=== PATIENT | female | born 1975 | race Caucasian/White ===

== ENCOUNTER 2016-11-17 10:39 | Emergency (ER) | payer OTHER ==
--- NOTE | 2016-11-17 13:30 | EDPHY ---
HPI/HX/ROS/PE/MDM Narrative: CHIEF COMPLAINT: Right calf pain HPI: The patient is a 41-year-old female who complains of right calf pain that has been ongoing for several weeks. She states the pain feels like a bruise. The pain is moderate in severity and remains constant. She recently developed shortness of breath that is worse with exertion. She denies chest pain or palpitations. She has no history of PE or DVT. The patient additionally notes that she is pre-diabetic and is concerned she is having blood sugar issues. She states she feels extremely anxious when she doesn 't eat. She develops tachycardia and a dry mouth. These symptoms resolve 1 hour after eating. She states she has been in the ED at least three times in the last few months for this issue. Her last A1C was 4.9. REVIEW OF SYSTEMS: Aside from elements discussed in the HPI, a comprehensive 10-point review of systems was reviewed and is negative. PMH: Possibly Pre-diabetes SOCIAL HISTORY: Moved here from [place]. Denies drug abuse. PHYSICAL EXAM: General: Patient is alert, in no acute distress. ENT: Eyes are normal to inspection. ENT inspection normal. Neck: Normal inspection. Full range of motion. Respiratory: No respiratory distress. Breath sounds normal bilaterally. Cardiovascular: Regular rate and rhythm. Strong peripheral pulses. Abdomen: The abdomen is nontender to palpation. There are no peritoneal signs. There are normal bowel sounds. Back: Normal to inspection. No tenderness to palpation. Skin: Normal color. No rash. Warm and dry. Extremities: Normal appearance. Full range of motion. Neuro: Oriented x3. Normal motor function. Normal sensory function. ED Course: Patient presents with right calf pain and shortness of breath. Plan to check d- dimer, troponin, and basic lab work. Lab work is normal. D-dimer is normal. Preg test is negative. Plan to discharge patient home with PCP referral. MDM: This patient presents with months of what she describes as hypoglycemia, which is weakness when she does not have anything to eat. She also describes months of intermittent SOB which has been evaluated numerous times by other EDs. She complains of mild calf pain, but thankfully d-dimer is negative. Her exam is actually totally normal, so I think she is low risk for DVT based on exam, and with a negative d-dimer I do not think further imaging is indicated. There is no evidence of anemia, renal failure, PE, or electrolyte abnormality. - Data Points Laboratory Results: Laboratory Results 11/17/16 13:35 11/17/16 13:35 11/17/16 11/17/16 11/17/16 13:35 13:35 13:35 WBC RBC Hgb Hct MCV MCH MCHC RDW Plt Count MPV Neut % (Auto) Lymph % (Auto) [place] % (Auto) Eos % (Auto) Baso % (Auto) Nucleat RBC Rel Count Absolute Neuts (auto) Absolute Lymphs (auto) Absolute Monos (auto) Absolute Eos (auto) Absolute Basos (auto) Absolute Nucleated RBC Immature Gran % Immature Gran # D-Dimer 0.44 ug/mLFEU ug/mLFEU (0.00-0.50) Sodium 143 mEq/L mEq/L (134-144) Potassium 4.4 mEq/L mEq/L (3.5-5.2) Chloride 109 mEq/L mEq/L (97-110) Carbon Dioxide 21 mEq/l L mEq/l (22-31) Anion Gap 13 mEq/L mEq/L (8-16) BUN 12 mg/dL mg/dL (7-23) Creatinine 0.8 mg/dL mg/dL (0.6-1.0) Estimated GFR > 60 Glucose 93 mg/dL mg/dL (70-100) Calcium 9.4 mg/dL mg/dL (8.5-10.4) Troponin I < 0.012 ng/mL ng/mL (0-0.034) Beta HCG, Qual NEGATIVE 11/17/16 13:35 WBC 9.16 10^3/uL 10^3/uL (3.80-9.50) RBC 4.71 10^6/uL 10^6/uL (4.18-5.33) Hgb 14.4 g/dL g/dL (12.6-16.3) Hct 43.0 % % (38.0-47.0) MCV 91.3 fL fL (81.5-99.8) MCH 30.6 pg pg (27.9-34.1) MCHC 33.5 g/dL g/dL (32.4-36.7) RDW 12.1 % % (11.5-15.2) Plt Count 370 10^3/uL 10^3/uL (150-400) MPV 10.3 fL fL (8.7-11.7) Neut % (Auto) 59.5 % % (39.3-74.2) Lymph % (Auto) 32.1 % % (15.0-45.0) [place] % (Auto) 6.8 % % (4.5-13.0) Eos % (Auto) 1.0 % % (0.6-7.6) Baso % (Auto) 0.3 % % (0.3-1.7) Nucleat RBC Rel Count 0.0 % % (0.0-0.2) Absolute Neuts (auto) 5.45 10^3/uL 10^3/uL (1.70-6.50) Absolute Lymphs (auto) 2.94 10^3/uL 10^3/uL (1.00-3.00) Absolute Monos (auto) 0.62 10^3/uL 10^3/uL (0.30-0.80) Absolute Eos (auto) 0.09 10^3/uL 10^3/uL (0.03-0.40) Absolute Basos (auto) 0.03 10^3/uL 10^3/uL (0.02-0.10) Absolute Nucleated RBC 0.00 10^3/uL 10^3/uL (0-0.01) Immature Gran % 0.3 % % (0.0-1.1) Immature Gran # 0.03 10^3/uL 10^3/uL (0.00-0.10) D-Dimer Sodium Potassium Chloride Carbon Dioxide Anion Gap BUN Creatinine Estimated GFR Glucose Calcium Troponin I Beta HCG, Qual General Time Seen by Provider: 11/17/16 13:20 Initial Vital Signs: Initial Vital Signs Temperature (C) 36.3 C 11/17/16 11:00 Heart Rate 82 11/17/16 11:00 Respiratory Rate 18 11/17/16 11:00 Blood Pressure 130/89 H 11/17/16 11:00 O2 Sat (%) 97 11/17/16 11:00 O2 Delivery Mode Room Air Allergies/Adverse Reactions: No Known Allergies Allergy (Verified 11/17/16 11:18) Home Medications: Medication Instructions Recorded "Lots Of Vitamins" 05/03/12 Departure - Departure Disposition: Home, Routine, Self-Care Clinical Impression: Shortness of breath, Right calf pain Condition: Good Instructions: Dyspnea (ED), Leg Pain (ED) Additional Instructions: Please followup with a primary care physician this week in regards to your symptoms. You have been referred to one of our primary care physicians below. Return to the emergency department with new or worsening symptoms. Referrals: Pia Cortes MD [[facility] [place] Provider] - As per Instructions (Primary Care Physician) Report Scribed for: Liban Faye Report Scribed by: Reina Murillo Date of Report: 11/17/16 Time of Report: 13:30 Physician Review and Approval Statement: Portions of this note were transcribed by a medical billing manager. I personally performed the history, physical exam, and medical decision-making; and confirmed the accuracy of the information in the transcribed note.
--- NOTE | 2016-11-17 13:40 | CPEKG ---
Heart Rate: 74 RR Interval: 811 P-R Interval: 156 QRSD Interval: 76 QT Interval: 400 QTC Interval: 444 P [place]: 51 QRS [place]: 40 T Wave [place]: 25 EKG Severity - NORMAL ECG - EKG Impression: SINUS RHYTHM Electronically Signed By: Len Rodriguez 17-Nov-2016 14:57:55
[2016-11-17 13:42] LABS: % IMMATURE GRANULYOCYTES 0.3 % (0.0-1.1); ABSOLUTE IMMATURE GRANULOCYTES 0.03 10^3/uL (0.00-0.10); ADD DIFF? NO; ADD MORPH? NO; ADD SCAN? NO; ATYPICAL LYMPHOCYTE FLAG 0 (0-99); FRAGMENT RBC FLAG 0 (0-99); HEMOGLOBIN 14.4 g/dL (12.6-16.3); LEFT SHIFT FLG 0 (0-99); LIPEMIA HEMOLYSIS FLAG 80 (0-99); MEAN CELL HEMOGLOBIN 30.6 pg (27.9-34.1); MEAN CELL HEMOGLOBIN CONCENTR. 33.5 g/dL (32.4-36.7); MEAN CELL VOLUME 91.3 fL (81.5-99.8); MEAN PLATELET VOLUME 10.3 fL (8.7-11.7); PLATELET CLUMPS FLAG 10 (0-99); PLATELET COUNT 370 10^3/uL (150-400); RED BLOOD CELL COUNT 4.71 10^6/uL (4.18-5.33); RED CELL DISTRIBUTION WIDTH 12.1 % (11.5-15.2)
[2016-11-17 13:54] LABS: ANION GAP 13 mEq/L (8-16); CALCIUM 9.4 mg/dL (8.5-10.4); CARBON DIOXIDE 21 mEq/l (22-31); CHLORIDE 109 mEq/L (97-110); CREATININE 0.8 mg/dL (0.6-1.0); GLOMERULAR FILTRATION RATE > 60; GLUCOSE 93 mg/dL (70-100); POTASSIUM 4.4 mEq/L (3.5-5.2); SODIUM 143 mEq/L (134-144)
[2016-11-17 14:05] LABS: TROPONIN I < 0.012 ng/mL (0-0.034)
[2016-11-17 14:28] VITALS: TEMP 97.2
[2016-11-17 15:14] VITALS: BP 110/73; PULSE 63; RESP 16; O2SAT 97
== END 2016-11-17 15:15 | disposition home or self-care (01) ==
DX: M79.661 Pain in right lower leg (principal); R06.02 Shortness of breath

== ENCOUNTER → 2018-01-25 | Outpatient (CLI) | payer MEDICAID, OTHER | LOC: BMCIMAGING 10:25 | PROVIDERS: ATTEND Physician Assistant | DX: R92.8 Other abnormal and inconclusive findings on diagnostic imaging of breast (principal) ==